=== PATIENT | male | born 1955 | race Caucasian/White ===

== ENCOUNTER 2019-01-15 10:56 | Emergency (ER) | payer BC, OTHER ==
[~2019-01-15] VITALS: Ht 188 cm; Wt 63.5 kg
[2019-01-15] MEDS ORDERED: SODIUM CHLORIDE 0.9% 1,000 ML IVB ONE (11:33)
[2019-01-15 12:48] LABS: Basophils # (auto) 0 uL; Basophils % (auto) 0.3 % (0.0-2.0); Eosinophils # (auto) 0.2 uL; Eosinophils % (auto) 1.3 % (0.0-7.0); Hematocrit 41.1 % (41.0-53.0); Hemoglobin 13.8 g/dL (13.5-17.5); Lymphocytes # (auto) 0.5 uL; Mean Corpuscular Hemoglobin 31.8 pg (28.0-32.0); Mean Corpuscular Hgb Conc. 33.5 g/dL (32.0-36.0); Monocytes # (auto) 0.7 uL; Monocytes % (auto) 6.2 % (0.0-12.0); Neutrophils # (auto) 10.7 uL; Neutrophils % (auto) 88.2 % (37.0-80.0); Nucleated Red Blood Cells % 0.1 %; Platelet Count (auto) 287 10^3/uL (140-450); Red Blood Cells 4.33 10^6/uL (4.5-5.90); Red Cell Distribution Width 13.3 % (11.8-14.3); White Blood Cell 12.1 10^3/uL (4.4-10.8)
[2019-01-15 13:03] LABS: Albumin 2.7 g/dL (3.4-5.0); Anion Gap 3 (5-15); Aspartate Aminotransferase 45 U/L (15-37); Blood Alcohol < 3.0 mg/dL (0-5); Blood Urea Nitrogen 14 mg/dL (7-18); Calcium 8.6 mg/dL (8.5-10.1); Carbon Dioxide 30 mmol/L (21-32); Chloride 106 mmol/L (98-107); Glucose 94 mg/dL (74-106); Sodium 139 mmol/L (136-145)
[2019-01-15 13:08] LABS: Alanine Aminotransferase 43 U/L (16-61); Alkaline Phosphatase 163 U/L (45-117); BUN/Creatinine Ratio 16.9; Bilirubin, Total 0.5 mg/dL (0.2-1.0); GFR African American 120 mL/min; GFR Non-African American 99 mL/min
[2019-01-15 14:28] LABS: INR 1.07 (0.9-1.15); Partial Thromboplastin Time 29.9 sec (23.64-32.05)
[2019-01-15] MEDS ORDERED: cefTRIAXone 1GM/50ML D5W 50 ML IV ONE (16:30)
[2019-01-15 17:03] LABS: Amphetamine Screen, Urine NEGATIVE (NEGATIVE); Barbiturate Scree,Urine NEGATIVE (NEGATIVE); Benzodiazephine Screen, Urine NEGATIVE (NEGATIVE); Cannabinoid Screen, Urine NEGATIVE (NEGATIVE); Cocaine Screen, Urine NEGATIVE (NEGATIVE); Phencyclidine Screen, Urine NEGATIVE (NEGATIVE)
[2019-01-15 17:18] LABS: Alcohol, Urine < 3.0 mg/dL (0-5); Opiate Scree,Urine POSITIVE (NEGATIVE)
[2019-01-15] MEDS ORDERED: HYDROcodone-ACET 10/325MG TAB PO ONE (19:30)
[2019-01-16 05:25] VITALS: BP 128/89
[2019-01-16] MEDS ORDERED: HYDROcodone-ACET 10/325MG TAB PO ONE (06:00)
== END 2019-01-16 06:20 | disposition home or self-care (01) ==
LOC: EDBD 10:56 → ER 11:01
DX: R41.82 Altered mental status, unspecified (principal); I63.81 Other cerebral infarction due to occlusion or stenosis of small artery; L03.221 Cellulitis of neck; I10 Essential (primary) hypertension; E78.5 Hyperlipidemia, unspecified
CPT/HCPCS: 36415; 70450; 70490; 71045; 80053; 80307; 80320; 83605; 83735; 84484; 85025; 85610; 85730; 87040; 93005; 96361; 96365; 99284; J0696

== ENCOUNTER 2019-01-18 12:01 | Emergency (ER) | payer BC ==
[~2019-01-18] VITALS: Ht 177.8 cm; Wt 68.0 kg
[2019-01-18 13:39] LABS: Basophils # (auto) 0 uL; Basophils % (auto) 0.2 % (0.0-2.0); Eosinophils # (auto) 0.1 uL; Eosinophils % (auto) 0.5 % (0.0-7.0); Hematocrit 42.7 % (41.0-53.0); Hemoglobin 14.5 g/dL (13.5-17.5); Lymphocytes # (auto) 0.3 uL; Lymphocytes % (auto) 2.6 % (10.0-50.0); Mean Corpuscular Hemoglobin 31.4 pg (28.0-32.0); Mean Corpuscular Volume 92.4 fL (80.0-100.0); Monocytes # (auto) 0.9 uL; Monocytes % (auto) 7.2 % (0.0-12.0); Neutrophils % (auto) 89.5 % (37.0-80.0); Nucleated Red Blood Cells % 0.1 %; Platelet Count (auto) 323 10^3/uL (140-450); Red Blood Cells 4.62 10^6/uL (4.5-5.90); Red Cell Distribution Width 13.3 % (11.8-14.3); White Blood Cell 12.3 10^3/uL (4.4-10.8)
[2019-01-18 13:58] LABS: INR 1.07 (0.9-1.15)
[2019-01-18 14:11] LABS: Albumin 2.9 g/dL (3.4-5.0); Calcium 8.9 mg/dL (8.5-10.1); Potassium 4.2 mmol/L (3.5-5.1)
[2019-01-18 14:15] LABS: BUN/Creatinine Ratio 18.6; Bilirubin, Total 0.5 mg/dL (0.2-1.0); Total Protein 7.1 g/dL (6.4-8.2)
[2019-01-18] MEDS ORDERED: MORPHINE SULF INJ 2 MG/ML SYRINGE 1ML IV ONE (18:15)
[2019-01-18] MEDS ORDERED: ONDANSETRON HCL 4 MG/2 ML VIAL IV ONE (18:15)
[2019-01-18 21:00] VITALS: BP 127/85
== END 2019-01-19 02:48 | disposition left against medical advice (07) ==
LOC: ER 12:01 → EDBD 12:01 → ER 22:52
DX: R56.9 Unspecified convulsions (principal); C76.0 Malignant neoplasm of head, face and neck; E78.00 Pure hypercholesterolemia, unspecified; I10 Essential (primary) hypertension
CPT/HCPCS: 36415; 70450; 71045; 80053; 82962; 83735; 85025; 85610; 85730; 93005; 96374; 96375; 99284; J2270; J2405

== ENCOUNTER 2019-02-12 21:00 | Inpatient (IN) | payer BC ==
[~2019-02-12] VITALS: Ht 195.6 cm; Wt 47.5 kg
[2019-02-12 22:14] LABS: Basophils # (auto) 0 uL; Eosinophils # (auto) 0 uL; Eosinophils % (auto) 0.3 % (0.0-7.0); Hematocrit 50.1 % (41.0-53.0); Hemoglobin 16.9 g/dL (13.5-17.5); Lymphocytes # (auto) 0.3 uL; Mean Corpuscular Hemoglobin 32.4 pg (28.0-32.0); Mean Corpuscular Hgb Conc. 33.7 g/dL (32.0-36.0); Mean Corpuscular Volume 96.1 fL (80.0-100.0); Monocytes # (auto) 0.6 uL; Monocytes % (auto) 4.4 % (0.0-12.0); Neutrophils # (auto) 11.8 uL; Neutrophils % (auto) 93.3 % (37.0-80.0); Nucleated Red Blood Cells % 0.1 %; Platelet Count (auto) 199 10^3/uL (140-450); Red Blood Cells 5.21 10^6/uL (4.5-5.90); Red Cell Distribution Width 14.9 % (11.8-14.3); White Blood Cell 12.7 10^3/uL (4.4-10.8)
[2019-02-12 22:37] LABS: Alanine Aminotransferase 87 U/L (16-61); Albumin 2.8 g/dL (3.4-5.0); Anion Gap 8 (5-15); Aspartate Aminotransferase 54 U/L (15-37); Blood Urea Nitrogen 48 mg/dL (7-18); Calcium 10.5 mg/dL (8.5-10.1); Carbon Dioxide 25 mmol/L (21-32); Chloride 115 mmol/L (98-107); GFR African American 80 mL/min; GFR Non-African American 66 mL/min; Glucose 107 mg/dL (74-106); Potassium 3.7 mmol/L (3.5-5.1); Sodium 148 mmol/L (136-145)
[2019-02-12 22:41] LABS: Alkaline Phosphatase 171 U/L (45-117); Bilirubin, Total 0.9 mg/dL (0.2-1.0); Total Protein 7.7 g/dL (6.4-8.2)
[2019-02-12 22:47] LABS: INR 1.26 (0.9-1.15); Partial Thromboplastin Time 28.5 sec (23.64-32.05)
[2019-02-13] MEDS ORDERED: D5W 5% 1,000 ML IV SCH (04:30)
[2019-02-13] MEDS ORDERED: ONDANSETRON HCL 4 MG/2 ML VIAL IV PRN (04:30)
[2019-02-13] MEDS ORDERED: ACETAMINOPHEN 325 MG TAB PO PRN (04:30)
[2019-02-13] MEDS ORDERED: MORPHINE SULFATE 4 MG/ML SYR/VIAL IV PRN (04:30)
[2019-02-13] MEDS ORDERED: DOCUSATE SOD 100 MG CAP PO PRN (04:30)
[2019-02-13] MEDS ORDERED: HYDROcodone-ACET 5/325MG TAB PO PRN (04:30)
[2019-02-13 06:57] LABS: Basophils # (auto) 0 uL; Eosinophils # (auto) 0.1 uL; Eosinophils % (auto) 0.6 % (0.0-7.0); Hematocrit 48.3 % (41.0-53.0); Hemoglobin 16.2 g/dL (13.5-17.5); Lymphocytes # (auto) 0.3 uL; Lymphocytes % (auto) 3.1 % (10.0-50.0); Mean Corpuscular Hgb Conc. 33.4 g/dL (32.0-36.0); Mean Corpuscular Volume 95.6 fL (80.0-100.0); Monocytes # (auto) 0.4 uL; Monocytes % (auto) 3.7 % (0.0-12.0); Neutrophils # (auto) 10.5 uL; Neutrophils % (auto) 92.6 % (37.0-80.0); Platelet Count (auto) 187 10^3/uL (140-450); Red Blood Cells 5.06 10^6/uL (4.5-5.90); Red Cell Distribution Width 14.7 % (11.8-14.3); White Blood Cell 11.3 10^3/uL (4.4-10.8)
[2019-02-13 07:25] LABS: Calcium 10.6 mg/dL (8.5-10.1); Potassium 3.8 mmol/L (3.5-5.1)
[2019-02-13 07:27] LABS: BUN/Creatinine Ratio 47.4
[2019-02-13 09:30] VITALS: BP 101/60
[2019-02-13] MEDS: D5W 5% 1,000 ML IV SCH ×2 (10:12→20:00)
[2019-02-13] MEDS: cefTRIAXone 1GM/50ML D5W 50 ML IV SCH (10:13)
--- NOTE | 2019-02-13 11:00 | NUR ---
WOUND CARE NOTE: Wound care team asked to see patient by bedside RNJohn due to wounds noted on admission. Patient is a 63yo male admitted for generalized weakness, dehydration, intractable vomiting and history of head & neck cancer. Patient with a history of cancer, hypertension, high lipids and depression. Patient is alert and denies pain. Last Rodo score is 15. Patient with a mass to right neck and is pending surgical consult with Dr Juan. Patient also noted to have a pressure injury to sacrum, stage 2, measuring 3x3cm. No other open wounds noted. RECOMMENDATIONS: Dietary consult; Turn q2hrs; Nursing to cleanse sacrum with mild soap and water, pat dry, apply ZGUARD BID/PRN soiling and cover with OPTIFOAM GENTLE sacral dressing, changing PRN; wound care team to continue to follow. Addendum: 02/13/19 at 1916 by EDU MOSLEY RN Amended: Links added.
[2019-02-13 12:00] VITALS: BP 105/79
--- NOTE | 2019-02-13 13:41 | NUR ---
PATIENT A CLIENT OF [facility] IN [place]. REQUEST FOR MEDICAL RECORDS FROM THIS GROUP REQUESTED. PATIENT AND FAMILY STATE THAT THEY ARE NOT INTERESTED IN HOSPICE AT THIS TIME. CONSULTS FOR FEEDING TUBE PLACEMENT HAVE BEEN ORDERED FOR GI AND SURGERY.
--- NOTE | 2019-02-13 14:38 | NUR ---
DRESSING CHANGE RIGHT NECK
[2019-02-13 17:00] VITALS: BP 107/76
--- NOTE | 2019-02-13 19:50 | NUR ---
Opening Shift Note Assumed care of patient, awake and alert response to name. No S/S of distress/SOB or pain. Instructed on POC and to call for assist PRN, will continue to monitor for changes Q1hr and PRN. bed in low position and call light within reach. bed alarm on
[2019-02-13 22:00] VITALS: BP 108/72
--- NOTE | 2019-02-13 22:28 | NUR ---
dressing change done per md orders.patient tolerated well. patient repositioned. pressure areas elevated onto pillows. bed in low position and call light within reach
--- NOTE | 2019-02-14 04:00 | NUR ---
chg wipes used on patient. linen change provided to patient. unable to obtain UA as patient is in incontinence. patient repositioned. pressure areas elevated onto pillows. dressings clean dry and intact.
[2019-02-14 05:00] VITALS: BP 97/74
[2019-02-14] MEDS: D5W 5% 1,000 ML IV SCH ×2 (06:00→10:39)
--- NOTE | 2019-02-14 06:55 | NUR ---
PATIENT ROUNDS PATIENT IS IN BED WATCHING TV. PATIENT DENIES SOB/ DISTRESS OR PAIN. DRESSING IS C/D/I.
--- NOTE | 2019-02-14 07:40 | NUR ---
REPORT GIVEN TO DAYSHIFT RN. PATIENT DENIES SOB/DISTRESS OR PAIN
[2019-02-14 08:00] VITALS: BP 103/59
[2019-02-14 09:00] VITALS: BP 106/79
[2019-02-14] MEDS ORDERED: SODIUM CHLORIDE LOCK 10 ML ONE (10:22)
[2019-02-14] MEDS ORDERED: fentaNYL CITRATE 100 MCG/2 ML VL ONE (10:22)
[2019-02-14] MEDS ORDERED: LIDOCAINE VISCOUS 2% 15ML UD ONE (10:22)
[2019-02-14] MEDS ORDERED: MIDAZOLAM HCL 5 MG/ML-1ML VIAL ONE (10:23)
[2019-02-14] MEDS ORDERED: diphenhdrAMINE HCL 50 MG/1 ML VL ONE (10:23)
[2019-02-14] MEDS: cefTRIAXone 1GM/50ML D5W 50 ML IV SCH (10:39)
--- NOTE | 2019-02-14 11:27 | NUR ---
NUTRITION CONSULT/ASSESSMENT NOTES Please refer to link notes of nutrition screen form filed under the intervention section of the plan of care for further details. Est. Needs based on IBW (90 kg): 2250 kcal to 2700 kcal (25-30 kcal/kgIBW), 90 gms to 117 gms pro (1.0-1.3 gms/kgBW d/t mod hypoalbuminemia). Will continue to monitor pertinent labs and reassess nutrient need prn Thank you for this consult. Addendum: 02/14/19 at [address] Amended: Links added.
[2019-02-14 13:00] VITALS: BP 144/97
[2019-02-14] MEDS ORDERED: ceFAZolin 1GM/50ML 50 ML IV ONE (14:44)
[2019-02-14] MEDS ORDERED: MORPHINE SULF INJ 2 MG/ML SYRINGE 1ML IV PRN (15:45)
[2019-02-14 17:00] VITALS: BP 108/77
--- NOTE | 2019-02-14 17:45 | NUR ---
assessment Patient is a 63 year old male who cannot speak at this time. Per patients Mary prior to admission patient lived home with her and functioned with her assistance. Per Mary patients PCP is Dr Hayes in [place]. Per Mary patient has a wheelchair, fww, hospital bed, bernardo lift, and shower chair for home use. Per Mary nobody has been able to get patient home health due to him having [employer] PPO and living in [place]. Patient has neck and throat cancer. Patient looks very weak. Per Mary patient wants everything done and is a full code. Patient has an advanced directive and Mary is his POA. I informed Mary patients post discharge needs to be determined prior to discharge. Mary verbalized understanding. Addendum: 02/14/19 at 1751 by Brittany ISLAS Amended: Links added.
--- NOTE | 2019-02-14 20:00 | NUR ---
Opening Shift Note Assumed care of patient, awake and alert. No S/S of distress/SOB or pain. Instructed on POC and to call for assist PRN, will continue to monitor for changes Q1hr and PRN. bed in low position call light within reach.
--- NOTE | 2019-02-14 20:00 | NUR ---
Opening Shift Note Assumed care of patient, awake and alert. No S/S of distress/SOB or pain. patient right arm is swollen per dayshift rn iv became infiltrated while patient was at his scheduled procedure. arm elevated onto pillow and hot pack provided to patient. Instructed on POC and to call for assist PRN, will continue to monitor for changes Q1hr and PRN. bed in low position call light within reach. bed alarm on
--- NOTE | 2019-02-14 20:50 | NUR ---
patient is unable to sign surgical consents
--- NOTE | 2019-02-14 20:50 | NUR ---
dressing change done. patient repositioned and pressure areas offloaded onto pillow. bed alarm on bed in low position and call light within reach
[2019-02-14] MEDS: PANTOPRAZOLE 40 MG/10 ML VIAL INJ IV SCH (21:16)
[2019-02-14 22:00] VITALS: BP 119/87
[2019-02-15] VITALS: BP_SYST 113
--- NOTE | 2019-02-15 00:34 | NUR ---
PATIENT REPOSITIONED. AND BLANKET PROVIDED TO PATIENT
[2019-02-15] MEDS: D5W 5% 1,000 ML IV SCH ×3 (02:00→21:56)
--- NOTE | 2019-02-15 02:03 | NUR ---
patient linen changed with assistance of application designer. perianal care provided. barrier cream applied. Optifoam in place. patient repositioned. mouth care provided to patient. bed alarm on. call light within reach bed is low position.
--- NOTE | 2019-02-15 05:00 | NUR ---
CHG WIPES AND LINEN CHANGE PERFORMED PATIENT REPOSITIONED AGAIN. AND PRESSURE AREAS OFFLOADED ONTO PILLOWS. BED IN LOW POSITION AND CALL LIGHT WITHIN REACH. BED ALARM ON
[2019-02-15 05:37] LABS: INR 1.16 (0.9-1.15)
--- NOTE | 2019-02-15 06:50 | NUR ---
CALLED OR SCHEDULING PROCEDURE CANCELED
--- NOTE | 2019-02-15 07:48 | NUR ---
REPORT GIVEN TO DAYSHIFT RN. ALSO INFORMED RN PATIENT IV CONTINUES TO HAVE MILD SWELLING FROM INFILTRATION ON 02/14 DURING DAYSHIFT, ARM ELEVATED ONTO PILLOW AND HOT PACK APPLIED. INFORMED RN PATIENT IV FLUID ON HOLD PATIENT CURRENT IV WAS LEAKING WHEN FLUSHED DUE TO IV PUMP STATING OCCLUSION.. PATIENT DENIES SOB/DISTRESS AND PAIN.
--- NOTE | 2019-02-15 08:05 | NUR ---
Opening Shift Note Assumed care of patient, awake, but drowsy. Alert to self. No S/S of distress/SOB or pain. Instructed on POC and to call for assist PRN, will continue to monitor for changes Q1hr and PRN.
[2019-02-15 09:00] VITALS: BP 117/79
--- NOTE | 2019-02-15 09:47 | NUR ---
Surgical Consult Phone call received from Dr. Juan, patient is high risk for surgery, recommends transfer to higher level of care.
--- NOTE | 2019-02-15 09:50 | NUR ---
Hospitalist banging Dr. Bob at bedside.
[2019-02-15] MEDS: PANTOPRAZOLE 40 MG/10 ML VIAL INJ IV SCH ×2 (09:52→21:56)
[2019-02-15] MEDS: cefTRIAXone 1GM/50ML D5W 50 ML IV SCH (09:53)
[2019-02-15 12:30] VITALS: BP 95/65
--- NOTE | 2019-02-15 13:50 | NUR ---
Family member at bedside. Dr. Bob at bedside, updated spouse regarding plan of care.
[2019-02-15 16:56] VITALS: BP 103/74
--- NOTE | 2019-02-15 19:50 | NUR ---
Opening Shift Note Assumed care of patient, awake and alert. No S/S of distress/SOB or pain. at bedside. Instructed and patient on POC and to call for assist PRN, will continue to monitor for changes Q1hr and PRN. bed in low position and call light within reach. bed alarm on. patient right arm elevated onto pillow mild swelling.
[2019-02-15 21:56] VITALS: BP 103/74
--- NOTE | 2019-02-15 21:56 | NUR ---
patient dressing done per md orders. oral care/pericare provided to patient. linen change done. patient repositioned
--- NOTE | 2019-02-15 22:38 | NUR ---
IV insertion/IV removal IV DC'd with clean sterile technique,due to IV leaking. catheter fully intact when removed. Pressure dressing applied to site. Patient tolerated well. arm elevated onto pillow hot pack applied. spoke with and confirmed patient has had no previous surgery or restrictions to right arm. IV access obtained, via clean sterile technique by inserting 22 gauge catheter at left ac after 2 attempts. IV secured properly. No trauma to site. Patient tolerated well. patient running fluids. see emar.
--- NOTE | 2019-02-16 02:20 | NUR ---
patient had bm. linen/gown change and perianal care provided. dressing change done.
[2019-02-16 05:00] VITALS: BP 97/65
--- NOTE | 2019-02-16 05:59 | NUR ---
patient linen change done. and perianal care performed. Optifoam in place and patient repositioned. call light within reach bed alarm on. running fluids as scheduled.
--- NOTE | 2019-02-16 07:22 | NUR ---
report given to vikram nickerson
[2019-02-16] MEDS: D5W 5% 1,000 ML IV SCH ×2 (08:00→18:00)
[2019-02-16 09:00] VITALS: BP 90/61
[2019-02-16 09:13] VITALS: BP 90/61
[2019-02-16] MEDS: PANTOPRAZOLE 40 MG/10 ML VIAL INJ IV SCH ×2 (10:00→21:37)
[2019-02-16] MEDS: cefTRIAXone 1GM/50ML D5W 50 ML IV SCH (10:00)
--- NOTE | 2019-02-16 12:08 | NUR ---
Pain Medication Verbal order received from Dr. Bob to administer Morphine 2mg IV before patient is discharged today.
--- NOTE | 2019-02-16 12:20 | NUR ---
Pain Medication Blood pressure 89/62, HR 67. Dr. Bob informed. Verbal orders to hold Morphine and administer Toradol 30mg IV once and administer N/S 1000 bolus x 1 before discharge.
--- NOTE | 2019-02-16 12:22 | NUR ---
IV bolus in progress, spouse at bedside.
[2019-02-16] MEDS ORDERED: SODIUM CHLORIDE 0.9% 1,000 ML IV ONE (12:45)
[2019-02-16] MEDS ORDERED: KETOROLAC TROMETH 30 MG/ML 1ML VIAL IV ONE (12:45)
[2019-02-16 13:00] VITALS: BP 89/62
--- NOTE | 2019-02-16 14:40 | NUR ---
Discharge Spouse had concerns regarding transporting patient at this hour (with heavy traffic) to follow-up with his oncologist. Will call hospitalist regarding discharge.
--- NOTE | 2019-02-16 14:50 | NUR ---
Hold Discharge until 02/17/[address] Tele[address] order [address] Dr[address] Bob to hold discharge until tomorrow morning.
--- NOTE | 2019-02-16 15:49 | NUR ---
Nutrition Follow-up Notes Wt.: 47.4 kg as of yesterday Pt's on oxygen via nasal cannula, asleep, no signs of distress noted this morning. Pt's s/p EGD with BX, noted unable to place PEG tube yesterday, remains NPO, no order for diet nor alternate nutrition support yet at this time. Est. Needs based on IBW (90 kg): 2250 kcal to 2700 kcal (25-30 kcal/kgIBW), 90 gms to 117 gms pro (1.0-1.3 gms/kgBW d/t mod hypoalbuminemia). Will continue to monitor pertinent labs and reassess nutrient need prn Labs: No new labs today; 02/13/18 Na 150 H, Cl 118 H, BUN 46 H, Ca 10.6 H, AST 54 H, ALT 87 H, ALP 171 H, Alb 2.8 L Skin: Rodo scale 12, high risk, pt's posterior sacrum pressure ulcers per model builder display. Pls refer to latest application internship's notes for further details re: tx plans. GI: Pt had 2 ml stool output this morning per model builder display. PES: Increased nutrient needs r/t acute/chronic medical condition aeb 54% IBW, BMI 12.9 kg/m2, cachectic, Generalized weakness, Dehydration, Failure to thrive, Intractable vomiting. NPO. Altered nutrition related lab values r/t current/chronic medical condition aeb hypernatremia, hyperchloremia, elev. BUN, LFTs,hypercalcemia and mod hypoalbuminemia Will continue to monitor NPO status, pertinent labs, skin status and weight trends. F/u in 2 to 3 days. Additional Rec.:1.) If still NPO, consider initiate alternate/PN nutrition support if medically appropriate. 2.) If GIT's working, consider EN support with formula choice of Pivot 1.5 Azam @ 65 ml/hr goal rate as tolerated. 3.) If Albumin continues trending down, consider Prostat 1 pkt BID. 4.) Consider daily MVI with minerals and Asc acid 500 mgs BID. 5.) Advance gradually to oral diet with ONS (per ST's diet texture recommendation) if medically appropriate. 6.) Refer to RD for further nutrition educ. and weight monitoring upon discharge. 7.) Continue current plan of care.
[2019-02-16 17:00] VITALS: BP 93/63
--- NOTE | 2019-02-16 19:25 | NUR ---
Opening Shift Note Assumed care of patient, awake and alert. No S/S of distress/SOB or pain. Bed is locked in lowest position. Instructed on POC and to call for assist PRN, will continue to monitor for changes Q1hr and PRN.
[2019-02-16 22:00] VITALS: BP 100/60
--- NOTE | 2019-02-17 04:15 | NUR ---
PAIN ASSESSMENT The patient currently c/o right neck pain and requesting pain medication. Will treat with PRN pain medication.
[2019-02-17] MEDS: D5W 5% 1,000 ML IV SCH (04:38)
[2019-02-17 05:00] VITALS: BP 102/58
--- NOTE | 2019-02-17 07:43 | NUR ---
Opening Shift Note Assumed care of patient, awake and alert to self and place. No S/S of distress/SOB or pain. Instructed on POC and to call for assist PRN, will continue to monitor for changes Q1hr and PRN. Call light placed within reach.
[2019-02-17 09:00] VITALS: BP 101/66
--- NOTE | 2019-02-17 09:15 | NUR ---
Wound Photos Discharge pictures already taken.
--- NOTE | 2019-02-17 09:30 | NUR ---
Hospitalist Rosemarieing Dr. Bob at bedside.
--- NOTE | 2019-02-17 10:40 | NUR ---
Discharge instructions given as ordered. Encourage to follow up with PMD as instructed. All questions and concerns addressed. Patient' spouse verbalized understanding. Medication reconciliation form completed and copy given to patient. IV removed with catheter intact and pressure dressing applied. Patient taken to vehicle via wheelchair with personal belongings, accompanied by staff and family member. No distress noted at time of departure.
== END 2019-02-17 10:40 | disposition home or self-care (01) | DRG 640 ==
LOC: EDBD 21:00 → ER 21:02 → OVERFLOW 21:03 → CENTRAL 02-13 08:46
PROVIDERS: ADMIT Hospitalist; ATTEND Family Medicine
PROC: 0DB68ZX Excision of Stomach, Via Natural or Artificial Opening Endoscopic, Diagnostic (ICD-10-PCS; principal; 2019-02-14 15:20)
DX: E86.0 Dehydration (principal); E43 Unspecified severe protein-calorie malnutrition; R64 Cachexia; Z68.1 Body mass index [BMI] 19.9 or less, adult; I70.0 Atherosclerosis of aorta; R62.7 Adult failure to thrive; C76.0 Malignant neoplasm of head, face and neck; F32.9 Major depressive disorder, single episode, unspecified; R13.10 Dysphagia, unspecified; K20.9 Esophagitis, unspecified; K29.70 Gastritis, unspecified, without bleeding; E78.5 Hyperlipidemia, unspecified; I10 Essential (primary) hypertension; I25.2 Old myocardial infarction; K59.00 Constipation, unspecified; I25.10 Atherosclerotic heart disease of native coronary artery without angina pectoris; Z85.89 Personal history of malignant neoplasm of other organs and systems; Z95.5 Presence of coronary angioplasty implant and graft; Z86.14 Personal history of Methicillin resistant Staphylococcus aureus infection; Z87.440 Personal history of urinary (tract) infections; Z79.899 Other long term (current) drug therapy
CPT/HCPCS: 36415; 70490; 71046; 80048; 80053; 83880; 84484; 85025; 85610; 85730; 86850; 86900; 86901; 93005; 96360; C9113; G0378; J0690; J0696; J1885; J2250; J2405